=== PATIENT | female | born 1950 | race Caucasian/White ===

== ENCOUNTER → 2018-07-28 | Outpatient (CLI) | payer OTHER ==
[~2018-07-28] MED LIST: ALEVE220 MG PO; ASPIR 8181 MG PO; ASPIRIN325 PO; ATORVASTATIN CA40 MG PO; B12INJ IM; COZAAR 25 MG TA25 M1 PO; FOLIC ACID1 MG PO; NORCO 5-325 TA1 EACH PO; PLAVIX 75 MG TA75 M1 PO; SYNTHROID112 MC1 PO
[2018-07-28 08:30] LABS: CREATININE 0.7 mg/dL (0.6-1.3)
== END ==
LOC: M.CT 07:55 → M.LAB 08:00 → M.CT 09:00
PROVIDERS: Surgery
DX: I65.21 Occlusion and stenosis of right carotid artery (principal)

== ENCOUNTER 2018-08-09 06:59 | Inpatient (IN) | payer OTHER ==
[~2018-08-09] VITALS: Ht 157.5 cm; Wt 65.3 kg
[2018-08-09] VITALS (12 sets, daily range): BP systolic 86–142; BP diastolic 35–58
[~2018-08-09 06:59] MED LIST changes: -ASPIR 8181 MG PO; -NORCO 5-325 TA1 EACH PO
[2018-08-09 11:26] LABS: ABSOLUTE BASOPHILS 0.1 thou/uL (0.0-0.2); ABSOLUTE EOSINOPHILS 0.2 thou/uL (0.0-0.7); ABSOLUTE MONOCYTES 0.5 thou/uL (0.0-1.2); ABSOLUTE NEUTROPHILS 4.2 thou/uL (1.6-8.1); BASOPHILS 1.2 %; EOSINOPHILS 2.3 %; HEMATOCRIT 38.4 % (37.0-47.0); HEMOGLOBIN 12.9 gm/dL (12.0-15.0); LYMPHOCYTES 28.9 %; MCH 30.6 pg (26.0-34.0); MCHC 33.7 g/dL (28.0-37.0); MCV 90.9 fL (80.0-100.0); MONOCYTES 6.6 %; MPV 8.4 fl. (7.2-11.1); NUCLEATED RBCS 0 /100WBC; PLATELET COUNT* 366 thou/uL (150-400); RBC 4.23 mil/uL (4.20-5.00); RDW-CV 13.7 % (10.5-14.5); WBC 6.9 thou/uL (4.0-11.0)
[2018-08-09 11:35] LABS: CALCIUM 9.4 mg/dL (8.5-10.1); CREATININE 0.7 mg/dL (0.6-1.3); POTASSIUM 3.9 mmol/L (3.5-5.1)
[2018-08-10 02:00] VITALS: BP 100/51
[2018-08-10 04:00] VITALS: BP 114/46
[2018-08-10 07:00] VITALS: BP 126/48
--- NOTE | 2018-08-10 07:28 | OP ---
[facility] [address] [place] [address] OPERATIVE REPORT Name: HERNANDEZJOANNE Aby Room: [address] IN M.R.#: [id number] Admission: 08/09/18 Attend Phys: Sadia Mak Discharge: Date of : 54 Report #: [id number] THIS REPORT FOR: //name// CC: Festus Begum DATE OF SERVICE: 08/09/2018 PREOPERATIVE DIAGNOSIS: Asymptomatic high-grade right carotid artery stenosis. POSTOPERATIVE DIAGNOSIS: Asymptomatic high-grade right carotid artery stenosis. OPERATION: 1. Right carotid endarterectomy with bovine pericardial patch angioplasty. 2. Completion of intraoperative duplex. SURGEON: Festus Quintero DO. YOUTH CARE PROFESSIONAL: IRA Yañez. ANESTHESIA: General. ESTIMATED BLOOD LOSS: 150 mL. FLUIDS: 1200 crystalloid. URINE OUTPUT: None. SPECIMENS: Right carotid plaque. IMPLANTS: A 0.8 x 8 bovine pericardial patch in the right carotid artery. COMPLICATIONS: None. FINDINGS: The patient had a 90% right carotid bifurcation stenosis extending about 2 cm up into the internal carotid artery. This endarterectomized well. She had a completion intraoperative duplex demonstrated no intraluminal defects and good flow through the external and continuous diastolic flow through the internal carotid artery. CLINICAL HISTORY: The patient is a 67-year-old woman who has been followed and found to have asymptomatic high-grade carotid artery stenosis 90% on the right and 75% on the left. She presents today for elective right carotid endarterectomy for stroke risk reduction. [facility] [address] [place] [address] OPERATIVE REPORT Name: MARYJOANNE Aby Room: [address] IN .R.#: [id number] Admission: 08/09/18 Attend Phys: Sadia Mak Discharge: Date of : 54 Report #: [id number] DETAILS OF PROCEDURE: After informed consent was obtained, the patient was taken to the operating room and placed on the OR bed in supine position. She was administered general anesthesia by Anesthesia team. The right neck was prepped and draped in usual sterile fashion. Full timeout was performed identifying correct patient and procedure. Next, a longitudinal incision made along the anterior border of sternocleidomastoid. Dissection was carried down through skin and subcutaneous tissue both sharply with electrocautery. The platysma was divided. The carotid sheath was entered. The facial vein was identified and ligated between 2-0 silk ties and divided. The jugular vein and vagus nerve were kept in the posterior lateral position. The common carotid artery was circumferentially mobilized and controlled with umbilical tape and Rumel tourniquet. She did have an episode of bradycardia, which I did inject the bulb with a lidocaine anesthetic. She had no further episodes of bradycardia. I then dissected out the external carotid artery, superior thyroid artery, controlled this with Silastic vessel loops in House fashion. I then dissected out the distal internal carotid artery, controlled with Silastic vessel loop as well. I then administered 8000 units of intravenous heparin, this was allowed to circulate for 3 minutes. I then sequentially clamped the internal carotid, followed by the external common carotid arteries and longitudinal arteriotomy extended with House scissors in the normal internal carotid artery and common carotid artery. I placed 14-Kinyarwanda [place] shunt in standard fashion. Doppler interrogation confirmed flow through the shunt. I then performed a standard endarterectomy with eversion endarterectomy of the external carotid artery, tailored good distal internal carotid artery endpoints. Freed the artery of all intimal debris, flushed with heparinized saline. I then performed a patch angioplasty with bovine pericardial patch with running 6-0 Prolene suture. Prior to completion of the suture line, the shunt was removed in standard fashion. The arteries were allowed to fore and backbleed. I then flushed with heparinized saline. I then completed the suture line and then restored flow first up the external carotid artery and after several heartbeats to the internal carotid artery. I then performed Doppler interrogation, which again demonstrated no intraluminal defects and good flow through the external carotid artery and continuous diastolic flow through the internal carotid artery. At this point, I then partially reversed the heparin with 50 mg protamine. Once hemostasis was ensured, the wound was irrigated with antibiotic solution and was closed in layers with 2-0 and 3-0 Vicryl, 4-0 Monocryl on the skin. Skin and subcutaneous tissues were anesthetized with Marcaine anesthetic. Then, sterile dressing was applied. All sponge, sharp and instrument counts reported correct x 2. She was extubated in the operating room, neurologically intact, moving upper and lower extremities appropriately and transferred to recovery area in stable condition. <ELECTRONICALLY SIGNED> By: Festus Quintero DO 08/10/18 0728 [id number] Quintero DO /nt
[2018-08-10] MEDS ORDERED: ASPIR 8181 MG PO (07:35)
[2018-08-10 07:51] VITALS: BP 122/55
[2018-08-10 10:22] VITALS: BP 122/55
[2018-08-10] MEDS ORDERED: NORCO 5-325 TA1 EACH PO (10:42)
--- NOTE | 2018-08-17 10:07 | PATH ---
[facility] [address] [place] [address] PATHOLOGY RPT PROCEDURE Name: SARAH BLOOM Room: [address] IN M.R.#: [id number] Admission: 08/09/18 Date of : 54 Discharge: 08/10/18 Report #: [id number] Path Case #: [id number] [facility] Accession Number: [id number] . 01 Material submitted: . RIGHT CAROTID PLAQUE . 01 Clinician provided ICD-10: I65.23 . 01 Clinical history: . Bilateral carotid stenosis . 02 Diagnosis: Right carotid plaque: - Fibrointimal atherosclerotic plaque with calcification. (SAJI:sohan; 08/11/2018) QMS/08/11/2018 . 02 Electronically signed: . Fareed Hart MD, Pathologist NPI- [id number] . 01 Gross description: . The specimen is received in formalin, labeled "Sarah Bloom, right carotid plaque", is a previously opened branched cylindrical segment measuring 2.8 x 1.0 x 0.8 cm. The larger branch is occluded with hathaway-brown friable to spangler-white tissue. Retail Operations Manager tissue is submitted in A1 after decalcification. (SWS; 08/10/2018) SHS/SHS . 02 Pathologist provided ICD-10: I65.21 . 02 CPT . 359873, 620386 Specimen Comment: A courtesy copy of this report has been sent to Specimen Comment: [phone], , . Specimen Comment: Report sent to , DR BURLESON / DR WHITLEY Performed at: [address] [facility] [id number] [facility] [address], [place], [place] [id number] MD Aaron Forte MD Phone: [phone] Performed at: [address], [place], [place] [id number] MD Fareed Hart MD Phone: [phone]
== END 2018-08-10 11:23 | disposition home or self-care (01) | DRG 39 ==
LOC: M.PRE 06:59 → M.ICU 10:46 → M.TBA 10:46 → M.PRE 15:41 → M.ICU 17:05
PROVIDERS: Surgery; ADMIT Internal Medicine
DX: I65.23 Occlusion and stenosis of bilateral carotid arteries (principal); I10 Essential (primary) hypertension; E78.5 Hyperlipidemia, unspecified; F17.210 Nicotine dependence, cigarettes, uncomplicated; E89.0 Postprocedural hypothyroidism; Z53.29 Procedure and treatment not carried out because of patient's decision for other reasons; Z88.0 Allergy status to penicillin; Z90.49 Acquired absence of other specified parts of digestive tract; Z71.6 Tobacco abuse counseling